=== PATIENT | male | born 1945 | race Caucasian/White ===

== ENCOUNTER 2018-10-15 07:31 | Day surgery (SDC) | payer MEDICARE ==
[~2018-10-15] VITALS: Ht 175.3 cm; Wt 80.3 kg
[2018-10-15] MEDS ORDERED: LOSA25TA96 PO (08:07)
[2018-10-15] MEDS ORDERED: CARV6.252 PO (08:07)
[2018-10-15] MEDS ORDERED: ISOS30TA6 PO (08:07)
[2018-10-15] MEDS ORDERED: NITR0.4T51 SL (08:07)
[2018-10-15] MEDS ORDERED: FISH12002 PO (08:07)
[2018-10-15] MEDS ORDERED: MULT-1180 PO (08:07)
[2018-10-15] MEDS ORDERED: PANT-47 PO (08:07)
[2018-10-15] MEDS ORDERED: FURO-149 PO (08:07)
[2018-10-15] MEDS ORDERED: ATOR80TA PO (08:07)
[2018-10-15] MEDS ORDERED: ASPI-41 PO (08:07)
[2018-10-15] MEDS ORDERED: LIDOcaine 1% 30ml preserv. free vial SQ ONE (08:25)
[2018-10-15 08:40] VITALS: BP 118/70
[2018-10-15 09:10] VITALS: BP 125/79
[2018-10-15 09:15] VITALS: BP 129/70
[2018-10-15 09:20] VITALS: BP 144/79
[2018-10-15 09:25] VITALS: BP 144/77
[2018-10-15 09:40] VITALS: BP 132/81
== END 2018-10-15 10:00 | disposition home or self-care (01) ==
LOC: SSTAY O 07:31
PROVIDERS: ATTEND Radiology Diagnostic Radiology
DX: J90 Pleural effusion, not elsewhere classified (principal); I25.10 Atherosclerotic heart disease of native coronary artery without angina pectoris; E78.5 Hyperlipidemia, unspecified; I10 Essential (primary) hypertension; I42.9 Cardiomyopathy, unspecified; Z87.891 Personal history of nicotine dependence; Z95.5 Presence of coronary angioplasty implant and graft; Z96.651 Presence of right artificial knee joint; Z95.2 Presence of prosthetic heart valve; Z98.890 Other specified postprocedural states; Z79.82 Long term (current) use of aspirin; Z79.899 Other long term (current) drug therapy
CPT/HCPCS: 32555; 71045; C1729; J3490; 88108; 88305

== ENCOUNTER 2020-12-20 09:02 | Day surgery (SDC) | payer MEDICARE ==
[~2020-12-20] VITALS: Ht 175.3 cm; Wt 75.7 kg
[~2020-12-20 09:02] MED LIST: ASPI-41 PO; ATOR80TA PO; CARV6.252 PO; FISH12002 PO; FURO-149 PO; ISOS30TA84 PO; LOSA25TA96 PO; MULT-1180 PO; NITR0.4T51 SL; PANT-47 PO
[2020-12-20] MEDS ORDERED: albumin 25% 100mL bottle x 1 IV PRN (09:30)
[2020-12-20 09:33] VITALS: BP 150/68
[2020-12-20] MEDS ORDERED: ATOR40TA PO (09:40)
[2020-12-20] MEDS ORDERED: POTA20TA19 PO (09:40)
[2020-12-20] MEDS ORDERED: ASPI-1071 PO (09:40)
[2020-12-20 10:36] VITALS: BP 150/73
[2020-12-20 10:48] VITALS: BP 158/83
[2020-12-20 11:00] VITALS: BP 153/82
[2020-12-20 11:15] VITALS: BP 148/78
[2020-12-20 11:30] VITALS: BP 155/86
== END 2020-12-20 11:50 | disposition home or self-care (01) ==
LOC: SSTAY O 09:02
PROVIDERS: ATTEND Radiology Diagnostic Radiology
DX: J90 Pleural effusion, not elsewhere classified (principal); I10 Essential (primary) hypertension; Z85.828 Personal history of other malignant neoplasm of skin; Z95.1 Presence of aortocoronary bypass graft; Z95.2 Presence of prosthetic heart valve; Z96.651 Presence of right artificial knee joint; Z98.890 Other specified postprocedural states; Z87.891 Personal history of nicotine dependence; Z79.899 Other long term (current) drug therapy
CPT/HCPCS: 32555